=== PATIENT | female | born 1960 | race Caucasian/White ===

== ENCOUNTER → 2016-09-22 | Outpatient (CLI) | payer OTHER ==
--- NOTE | ~2016-09-22 | MR113 ---
[facility] A Service of [facility] RADIOLOGY TEXT RESULTS PATIENT: JOHANA SNOW LOCATION: [facility] : 62 UNIT #: [id number] AGE: [address]: Micah Gonzalez MD SEX: F ORDER DR: [id number] [address] [address] [id number] O MR#: [id number] Acc #: [id number] NAME: JOHANA SNOW : 1960 SEX: F STUDY DATE/TIME: 09/22/2016 13:02 UNIT: [facility] ROOM: STUDY DESCRIPTION: MR Lumbar Wo Contrast Attending Physician: Micah Gonzalez M.D. Referring Physician: Micah Gonzalez M.D. Ordering Physician: Micah Gonzalez M.D. Primary Care Physician: Micah Gonzalez M.D. MRI CENTER REPORT This report is preliminary unless electronic signature is present. EXAM MRI of the lumbar spine without contrast. HISTORY 56-year-old female with increasing low back pain for approximately 3 years, left greater than right sciatica. FINDINGS Multiplanar, multiecho imaging was performed of the lumbar spine utilizing a high field magnet and dedicated protocol. Normal spinal alignment. T1 hyperintense lesion noted within the T12 vertebral body compatible with hemangioma. Normal termination of the conus. At L1-2, there is mild disc desiccation. No focal disc protrusion or herniation. No spinal or foraminal stenosis. Minimal L1-2 facet hypertrophic change. At L2-3, mild disc desiccation. No spinal or foraminal stenosis. Minimal facet hypertrophic change. At L3-4, disc desiccation with mild disc space narrowing but no focal disc protrusion. No significant spinal or foraminal stenosis. Mild facet hypertrophic change. At L4-5, mild degenerative disc changes with a circumferential disc bulge contributing to mild central canal stenosis and mild bilateral foraminal stenosis. At L5-S1, the disc space is maintained. No spinal or foraminal stenosis. Posterior elements are unremarkable. The visualized SI joints and paravertebral soft tissues are unremarkable. [facility] A Service of [facility] RADIOLOGY TEXT RESULTS PATIENT: JOHANA SNOW LOCATION: [facility] : 62 UNIT #: [id number] AGE: [address]: Micah Gnozalez MD SEX: F ORDER DR: IMPRESSION Mild multilevel degenerative disc changes as detailed above. No focal disc protrusions or herniations are identified. Mild spinal stenosis at L4-5 and mild bilateral foraminal stenosis. There is also mild multilevel facet hypertrophic change as detailed above. Dictated by... Phoebe Barone M.D. THIS IS AN ELECTRONICALLY VERIFIED REPORT Phoebe Barone M.D. at 09/23/2016 4:01 PM ANTHONY/hilary TD: 09/23/2016 09:53 JOB #: [id number] MRI CENTER REPORT Page 1 of 1
== END | disposition home or self-care (01) ==
LOC: SMRI 12:25
DX: M54.5 Low back pain (principal); M51.36 Other intervertebral disc degeneration, lumbar region; M48.06 Spinal stenosis, lumbar region; M47.896 Other spondylosis, lumbar region
CPT/HCPCS: 72148